=== PATIENT | female | born 1970 | race Caucasian/White ===

== ENCOUNTER 2018-08-04 11:59 | Outpatient (CLI) | payer OTHER ==
[~2018-08-04 11:59] MED LIST: CADUET 10 MG/201 TAB PO; GLUCOPHAGE XR500 MG; NABUMETONE500 MG PO; NO SE ACUERDA; PERCOCET 5/3251 TAB PO; ZANTAC150 M3; [UNRECOGNIZED DRUG - OTHER]
== END 2018-08-04 13:09 | disposition home or self-care (01) ==
LOC: RAD 11:59
DX: M25.561 Pain in right knee (principal); M25.562 Pain in left knee

== ENCOUNTER 2019-05-14 17:03 | Emergency (ER) | payer OTHER ==
[~2019-05-14] VITALS: Ht 167.6 cm; Wt 98.4 kg
== END 2019-05-14 21:06 | disposition home or self-care (01) ==
LOC: ER 17:03
DX: B34.9 Viral infection, unspecified (principal)

== ENCOUNTER 2024-05-14 13:04 | Outpatient (CLI) | payer OTHER | END 2024-05-14 13:05 | disposition home or self-care (01) | LOC: NUCLEAR 13:04 | DX: M81.0 Age-related osteoporosis without current pathological fracture (principal) ==